=== PATIENT | female | born 1935 | race Caucasian/White ===

== ENCOUNTER 2019-04-14 11:28 | Inpatient (IN) | payer MEDICARE, OTHER ==
[2019-04-08 11:47] LABS: Basophils # (auto) 0.1 uL; Basophils % (auto) 1.3 % (0.0-2.0); Eosinophils # (auto) 0.1 uL; Eosinophils % (auto) 1.3 % (0.0-7.0); Hematocrit 37.2 % (36.0-46.0); Hemoglobin 12.7 g/dL (12.2-16.2); Lymphocytes # (auto) 1.3 uL; Mean Corpuscular Hemoglobin 32.4 pg (28.0-32.0); Mean Corpuscular Volume 95.1 fL (80.0-100.0); Monocytes # (auto) 0.4 uL; Monocytes % (auto) 9.3 % (0.0-12.0); Neutrophils # (auto) 2.7 uL; Neutrophils % (auto) 59.1 % (37.0-80.0); Platelet Count (auto) 316 10^3/uL (140-450); Red Blood Cells 3.91 10^6/uL (4.0-5.20); Red Cell Distribution Width 13.7 % (11.8-14.3); White Blood Cell 4.6 10^3/uL (4.4-10.8)
[2019-04-08 12:10] LABS: INR 1.02 (0.9-1.15); Partial Thromboplastin Time 28.1 sec (23.64-32.05)
[2019-04-08 12:11] LABS: Urine Bacteria NONE SEEN /hpf (None Seen); Urine Blood 1+ /uL (Negative); Urine Specific Gravity 1.004 (1.001-1.035); Urine WBC 1 /hpf (0 - 5)
[2019-04-08 13:14] LABS: Albumin 3.5 g/dL (3.4-5.0); Calcium 9.9 mg/dL (8.5-10.1); Potassium 3.8 mmol/L (3.5-5.1)
[2019-04-08 13:18] LABS: BUN/Creatinine Ratio 14.7; Bilirubin, Total 0.6 mg/dL (0.2-1.0); Total Protein 7.9 g/dL (6.4-8.2)
[~2019-04-14] VITALS: Ht 152.4 cm; Wt 76.6 kg
[~2019-04-14 11:28] MED LIST: BRIM0.159 OP; CHOL100040 PO; MISCTAB85 PO; MULT-688 PO; OXYB5TAB24 PO; RED600TA PO; TAFL1DRO OP; TIMO0.5S67 EACHEYE
[2019-04-14] MEDS ORDERED: ACETAMINOPHEN IV 100 ML IV ONE (12:52)
[2019-04-14] MEDS ORDERED: ceFAZolin 1GM/50ML 100 ML IV ONE (12:52)
[2019-04-14] MEDS ORDERED: CELECOXIB 100 MG CAP PO ONE (13:00)
[2019-04-14] MEDS ORDERED: ACETAMINOPHEN IV 1000 MG/100ML (10MG/ML) IV ONE (13:00)
[2019-04-14] MEDS ORDERED: PREGABALIN CAPSULE 75 MG CAP PO ONE (13:00)
[2019-04-14] MEDS ORDERED: KETOROLAC TROMETH 30 MG/ML 1ML VIAL ONE (13:31)
[2019-04-14] MEDS ORDERED: MORPHINE SULF(PF) 0.5MG/ML 10ML VIAL ONE (13:31)
[2019-04-14] MEDS ORDERED: VANCOMYCIN HCL 1000 MG VL ONE (13:33)
[2019-04-14] MEDS ORDERED: SUCCINYLCHOLINE CHLORIDE 20 MG/ML 10ML VIAL IV ONE (13:45)
[2019-04-14] MEDS ORDERED: NEOSTIGMINE 1 MG/ML INJ (10mg/10ML VIAL) IV ONE (13:45)
[2019-04-14] MEDS ORDERED: GLYCOPYRROLATE 0.2 MG/ML 1ML VIAL IV ONE (13:45)
[2019-04-14] MEDS ORDERED: SODIUM CHLORIDE LOCK 10 ML ONE (13:48)
[2019-04-14] MEDS ORDERED: PROPOFOL 10 MG/ML 20 ML IV ONE (13:48)
[2019-04-14] MEDS ORDERED: fentaNYL CITRATE 100 MCG/2 ML VL ONE (13:48)
[2019-04-14] MEDS ORDERED: ONDANSETRON HCL 4 MG/2 ML VIAL ONE (13:48)
[2019-04-14] MEDS ORDERED: MIDAZOLAM HCL 1MG/1ML-2 ML VIAL ONE (13:48)
[2019-04-14] MEDS ORDERED: ROCURONIUM 10MG/ML 10ML VIAL IV ONE (13:48)
[2019-04-14] MEDS ORDERED: HYDROmorphone HCL 2 MG/ML VL ONE (13:48)
[2019-04-14] MEDS ORDERED: BUPIVACAINE 0.5% P/F INJ 10 ML VIAL ONE (13:51)
[2019-04-14] MEDS ORDERED: BUPIVACAINE 0.25% INJ 50ML VIAL ONE (13:51)
[2019-04-14] MEDS ORDERED: TRANEXAMIC ACID 10 ML ONE (16:03)
[2019-04-14] MEDS: D5W/LACTATED RINGERS 1,000 ML IV SCH (16:20)
[2019-04-14] MEDS ORDERED: HYDROcodone-ACET 5/325MG TAB PO PRN (16:30)
[2019-04-14] MEDS ORDERED: HYDROmorphone HCL 2 MG/ML VL IV PRN (16:30)
[2019-04-14] MEDS ORDERED: ACETAMINOPHEN 325 MG TAB PO PRN (16:30)
[2019-04-14] MEDS ORDERED: MORPHINE SULF(PF) 0.5MG/ML 10ML VIAL IV ONE (16:30)
[2019-04-14] MEDS ORDERED: MORPHINE SULF INJ 2 MG/ML SYRINGE 1ML IV PRN (16:30)
[2019-04-14] MEDS ORDERED: KETOROLAC TROMETH 30 MG/ML 1ML VIAL IV PRN (16:30)
[2019-04-14] MEDS ORDERED: NITROGLYCERIN 0.4 MG SL TAB SL PRN (16:30)
[2019-04-14] MEDS ORDERED: BUPIVACAINE 0.25% INJ 50ML VIAL IJ ONE (16:30)
[2019-04-14] MEDS: EYE OP SCH ×2 (17:00→22:00)
[2019-04-14] MEDS ORDERED: fentaNYL CITRATE 100 MCG/2 ML VL IV PRN (17:00)
[2019-04-14] MEDS ORDERED: ONDANSETRON HCL 4 MG/2 ML VIAL IV PRN (17:00)
[2019-04-14] MEDS ORDERED: hydrALAZINE HCL 20 MG/ML VL IV PRN (17:00)
[2019-04-14] MEDS: BRIMONIDINE 0.15% OP SCH ×2 (17:00→22:00)
[2019-04-14] MEDS ORDERED: ePHEDrine SULFATE 50 MG/ML AMP IV PRN (17:00)
--- NOTE | 2019-04-14 18:06 | NUR ---
received report from TOSHIA Quinteros- PACU
--- NOTE | 2019-04-14 18:23 | NUR ---
RECEIVED PT FROM PACU VIA BED, STILL DROWSY, NOTED POST OP DRESSING ON RIGHT SHOULDER CLEAN DRY AND INTACT, O2 AT 3LPM, BP 112/51MMHG, TEMP 97.3, HR 77BPM, WILL CONTINUE TO MONITOR.
[2019-04-14 18:42] VITALS: BP 112/51
--- NOTE | 2019-04-14 19:30 | NUR ---
Opening Shift Note Assumed care of patient. Patient is sleeping. No S/S of distress/SOB or pain. Bed locked in lowest position and bed rails up x2. Call light within reach. Will continue to monitor for changes.
--- NOTE | 2019-04-14 19:35 | NUR ---
Care endorsed to Jacquelyn Hdz pt is still lethargic and arousable to pain bp 110/49, HR 85, O2 sat 95% RR 10bpm.
--- NOTE | 2019-04-14 19:40 | NUR ---
Patient is difficult to arouse. Vitals signs taken and reading is BP 110/49, HR 87, O2 95, RR 10. Blood sugar taken and reads as 116. Lactated Ringers currently running and patient has NC in place at 4lpm. Charge nurse made aware. Will notify hospitalist and continue to monitor for changes.
[2019-04-14] MEDS ORDERED: NALOXONE HCL 0.4 MG/ML VIAL ONE (19:55)
[2019-04-14 20:00] VITALS: BP 110/49
[2019-04-14] MEDS ORDERED: NALOXONE HCL 0.4 MG/ML VIAL IV ONE (20:00)
--- NOTE | 2019-04-14 20:00 | NUR ---
Notified JESI Goodrich of patient current status. Given new orders. Will carry out orders and continue to monitor Q1 hour and PRN.
--- NOTE | 2019-04-14 20:10 | NUR ---
Patient status improving. Patient arousing slowly but able to give full name, birthdate, situation and able to follow commands. Will continue to monitor Q1 hour and PRN.
[2019-04-14 21:00] VITALS: BP 123/50
[2019-04-14 22:00] VITALS: BP_SYST 112; BP_SYST 116; BP_DIAS 51; BP_DIAS 53
[2019-04-14] MEDS: TAFLUPROST 0.0015% OP SCH (22:00)
[2019-04-14] MEDS: OXYBUTYNIN CHL 5 MG TAB PO SCH (22:00)
[2019-04-14] MEDS: RED YEAST RICE 1200 MG PO SCH (22:00)
[2019-04-14] MEDS: DOCUSATE SOD 100 MG CAP PO SCH (22:00)
[2019-04-14] MEDS: ceFAZolin 1GM/50ML 50 ML IV SCH (22:21)
[2019-04-14 23:00] VITALS: BP 84/52
[2019-04-14] MEDS: SODIUM CHLOR 0.9% PF (SALINE LOCK) 10ML VIAL/SYR IV SCH (23:45)
[2019-04-15] VITALS (11 sets, daily range): BP systolic 115–150; BP diastolic 48–84
--- NOTE | 2019-04-15 01:39 | NUR ---
Swallow Patient woke up while i was in the room and asked for water. Gave patient water with thickener. Patient tolerated well.
[2019-04-15] MEDS: ceFAZolin 1GM/50ML 50 ML IV SCH ×2 (04:20→13:42)
[2019-04-15] MEDS: D5W/LACTATED RINGERS 1,000 ML IV SCH ×3 (04:31→22:20)
--- NOTE | 2019-04-15 05:08 | NUR ---
Patient complaining of pain. Will give Toradol for pain. Charge nurse made aware.
[2019-04-15] MEDS: KETOROLAC TROMETH 30 MG/ML 1ML VIAL IV PRN ×2 (05:11→10:19)
[2019-04-15] MEDS: EYE OP SCH ×3 (06:00→21:20)
[2019-04-15] MEDS: BRIMONIDINE 0.15% OP SCH ×3 (06:00→21:20)
--- NOTE | 2019-04-15 06:00 | NUR ---
Respiratory note: HR 90, RR 16, SPO2 92% ON 4 L NC, BS CLEAR AND DIMINISHED. CONTINUOUS POX AT BEDSIDE CONNECTED TO PT. WILL CONTINUE TO MONITOR ORDERED.PT SLEEPING COMFORTABLY.
[2019-04-15] MEDS: SODIUM CHLOR 0.9% PF (SALINE LOCK) 10ML VIAL/SYR IV SCH ×3 (06:33→21:20)
[2019-04-15] MEDS: TIMOLOL MAL 0.5% OPTH(EYE) SOL 5ML EACHEYE SCH (06:37)
[2019-04-15 07:03] LABS: Basophils # (auto) 0 uL; Basophils % (auto) 0.3 % (0.0-2.0); Eosinophils # (auto) 0 uL; Eosinophils % (auto) 0.3 % (0.0-7.0); Hematocrit 32.7 % (36.0-46.0); Hemoglobin 10.9 g/dL (12.2-16.2); Lymphocytes # (auto) 0.7 uL; Lymphocytes % (auto) 9.9 % (10.0-50.0); Mean Corpuscular Hemoglobin 32.6 pg (28.0-32.0); Mean Corpuscular Hgb Conc. 33.4 g/dL (32.0-36.0); Mean Corpuscular Volume 97.7 fL (80.0-100.0); Monocytes # (auto) 0.9 uL; Monocytes % (auto) 11.7 % (0.0-12.0); Neutrophils # (auto) 5.7 uL; Neutrophils % (auto) 77.8 % (37.0-80.0); Nucleated Red Blood Cells % 0.1 %; Platelet Count (auto) 246 10^3/uL (140-450); Red Blood Cells 3.35 10^6/uL (4.0-5.20); Red Cell Distribution Width 14.1 % (11.8-14.3); White Blood Cell 7.3 10^3/uL (4.4-10.8)
[2019-04-15 07:16] LABS: Calcium 9.2 mg/dL (8.5-10.1); Potassium 3.7 mmol/L (3.5-5.1)
[2019-04-15 07:19] LABS: BUN/Creatinine Ratio 13.5
[2019-04-15] MEDS: Ensure HIGH Protein Vanilla 8oz Bottle PO SCH ×3 (08:00→18:04)
[2019-04-15] MEDS: RED YEAST RICE 1200 MG PO SCH ×2 (10:00→21:21)
[2019-04-15] MEDS: DOCUSATE SOD 100 MG CAP PO SCH ×2 (11:21→21:21)
[2019-04-15] MEDS: CHOLECALCIFEROL (VITD3) 1,000 UNIT TAB PO SCH (11:21)
[2019-04-15] MEDS: ENOXAPARIN SOD 40 MG/0.4 ML SYRINGE SC SCH (11:22)
[2019-04-15] MEDS: OXYBUTYNIN CHL 5 MG TAB PO SCH ×2 (11:23→21:22)
--- NOTE | 2019-04-15 15:12 | NUR ---
Discharge planning per SS consult, patient has orders for home safety evaluation. Patient and family presented choice options for home health, they had no preference. Son signed choice letter. Referral was sent to [facility], received a follow up call from Jennifer and was advised that they will accept this patient onto services and start of care will be within 24-48 hours upon discharge. Family advised.
--- NOTE | 2019-04-15 18:59 | NUR ---
New 22guage IV access to left upper arm established after initial IV infiltrated.
--- NOTE | 2019-04-15 19:45 | NUR ---
Opening Shift Note Assumed care of patient, AOx4. No S/S of distress/SOB or pain. Fall and safety precautions in place. Call light within reach. Instructed on POC and to call for assist PRN, will continue to monitor for changes Q1hr and PRN.
--- NOTE | 2019-04-15 20:20 | NUR ---
Respiratory note: HR 70, RR 16, SPO2 97% ON 4 L NC, BS CLEAR AND DIMINISHED. CONTINUOUS POX AT BEDSIDE CONNECTED TO PT. WILL CONTINUE TO MONITOR ORDERED.PT SLEEPING COMFORTABLY.
[2019-04-15] MEDS: TAFLUPROST 0.0015% OP SCH (21:21)
[2019-04-16] MEDS: D5W/LACTATED RINGERS 1,000 ML IV SCH (01:17)
[2019-04-16 04:02] VITALS: BP 133/63
[2019-04-16] MEDS: BRIMONIDINE 0.15% OP SCH (05:50)
[2019-04-16] MEDS: EYE OP SCH (05:50)
[2019-04-16] MEDS: SODIUM CHLOR 0.9% PF (SALINE LOCK) 10ML VIAL/SYR IV SCH (05:51)
[2019-04-16] MEDS: TIMOLOL MAL 0.5% OPTH(EYE) SOL 5ML EACHEYE SCH (06:22)
--- NOTE | 2019-04-16 08:00 | NUR ---
ASSESSMENT NOTE PT IS ALERT ORIENTED X4, RESTING IN BED COMFORTABLY, ON LOW JULIO POSITION, ABLE TO IDENTIFY HER NEEDS AND SELF REPOSITION, PT HAS RT ARM SPLINT, DRESSING IS DRY AND CLEAN AT THE RT SHOULDER, ABDOMEN LARGE AND SOFT, PAIN 0/10 AT THIS TIME, CALL LIGHT WITHIN REACH
--- NOTE | 2019-04-16 08:30 | NUR ---
FAMILY PATIENT SON AND AT BED SIDE
--- NOTE | 2019-04-16 08:45 | NUR ---
RX FAXED TO [facility], PER FAMILY REQUEST
[2019-04-16 09:00] VITALS: BP 165/74
[2019-04-16] MEDS: ENOXAPARIN SOD 40 MG/0.4 ML SYRINGE SC SCH (09:02)
[2019-04-16] MEDS: DOCUSATE SOD 100 MG CAP PO SCH (09:02)
[2019-04-16] MEDS: OXYBUTYNIN CHL 5 MG TAB PO SCH (09:02)
[2019-04-16] MEDS: CHOLECALCIFEROL (VITD3) 1,000 UNIT TAB PO SCH (09:03)
--- NOTE | 2019-04-16 09:45 | NUR ---
PHYSICAL THERAPY AT BED SIDE ASSISTING PT TO GET OUT OF BED AND AMBULATE IN THE HALLWAYS, TOLERATED WELL
[2019-04-16 10:00] VITALS: BP 125/59
[2019-04-16] MEDS: RED YEAST RICE 1200 MG PO SCH (10:00)
--- NOTE | 2019-04-16 10:30 | NUR ---
DR ARNOLD IS HERE, SAID ITS OKAY PT GO HOME UNDER DR GATICA'S ORDERS
--- NOTE | 2019-04-16 11:20 | NUR ---
ALL DISCHARGE INSTRUCTION GIVEN TO PT AND PATIENT'S SON, MADE AWARE OF THE DR APPOINTMENTS, STATED < I AM ALSO AWARE OF THE RT ARM RESTRICTION , THEY GAVE IT TO ME> REINFORCE THE EDUCATION, VERBALIS UNDERSTANDING
--- NOTE | 2019-04-16 12:00 | NUR ---
PATIENT'S SON WENT DOWN TO [facility]
--- NOTE | 2019-04-16 12:30 | NUR ---
assessment Patient discharged home prior to being assessed. Addendum: 04/16/19 at 1730 by Betty GOMEZ Amended: Links added.
--- NOTE | 2019-04-17 16:57 | NUR ---
Dischargee planning per consult, patient has orders to dc with home health. Patient had no preference. Son signed choice letter. Referral sent to [facility]. Placed a follow up call spoke with Jennifer and was advised that they will accept this patient on discharge. Advised of patient's discharge. Addendum: 04/17/19 at 1700 by CYNDY OLVERA Amended: Links added.
== END 2019-04-16 11:25 | disposition home health service (06) | DRG 483 ==
LOC: SUR 11:28 → TELE-EAST 18:24
PROVIDERS: ADMIT Orthopaedic Surgery Adult Reconstructive Orthopaedic Surgery; ATTEND Internal Medicine
PROC: 0RRJ00Z Replacement of Right Shoulder Joint with Reverse Ball and Socket Synthetic Substitute, Open Approach (ICD-10-PCS; principal; 2019-04-14 13:45)
DX: M75.101 Unspecified rotator cuff tear or rupture of right shoulder, not specified as traumatic (principal); Z96.611 Presence of right artificial shoulder joint; E66.9 Obesity, unspecified; H40.9 Unspecified glaucoma; N32.81 Overactive bladder; I10 Essential (primary) hypertension; Z68.32 Body mass index [BMI] 32.0-32.9, adult; Z98.42 Cataract extraction status, left eye; Z98.41 Cataract extraction status, right eye; Z79.899 Other long term (current) drug therapy
CPT/HCPCS: 36415; 36600; 73020; 80048; 80053; 81001; 82805; 82962; 85025; 85610; 85730; 86850; 86900; 86901; 94762; 97110; 97116; 97163; 97530; A4565; G0378; J0131; J0330; J0690; J1885; J2250; J2405; J2704; J3490